=== PATIENT | female | born 1935 | race Caucasian/White ===

== ENCOUNTER 2019-12-18 10:35 | Inpatient (IN) | payer MEDICARE, OTHER ==
[~2019-12-18] VITALS: Ht 170.2 cm; Wt 73.6 kg
[~2019-12-18 10:35] MED LIST: ALPR1TAB2 PO; DICL100G15 TOP
--- NOTE | 2019-12-18 10:50 | NUR ---
Pt refusing to have EKG, speaking with daughter and trying to explain to pt need for tests
--- NOTE | 2019-12-18 11:03 | NUR ---
pt refusing ekg
--- NOTE | 2019-12-18 11:14 | NUR ---
paged level 2 stroke alert. onset unknown
[2019-12-18] MEDS ORDERED: aspirin 81mg tab.chew PO ONE (11:45)
[2019-12-18 11:56] LABS: HEMATOCRIT 44.9 % (35.0-45.0); HEMOGLOBIN 15.1 g/dl (12.0-16.0); MEAN CORPUSCULAR HGB CONC 33.6 g/dL (33.0-36.5)
[2019-12-18 11:58] LABS: BASOPHILS # (AUTO) 0.1 X10'3 (0-0.2); BASOPHILS % (AUTO) 1.1 % (0-1); EOSINOPHILS # (AUTO) 0.2 X10'3 (0-0.9); EOSINOPHILS % (AUTO) 3.9 % (0-6); LYMPHOCYTES # (AUTO) 2.2 X10'3 (1.1-4.8); LYMPHOCYTES % (AUTO) 35.5 % (21-51); MEAN CORPUSCULAR HEMOGLOBIN 31.8 PG (27.0-31.0); MEAN CORPUSCULAR VOLUME 94.5 FL (78-98); MEAN PLATELET VOLUME 8.5 FL (7.4-10.4); MONOCYTES # (AUTO) 0.6 X10'3 (0-0.9); MONOCYTES % (AUTO) 9.4 % (2-12); NEUTROPHILS # (AUTO) 3.2 X10'3 (1.8-7.7); NEUTROPHILS % (AUTO) 50.1 % (42-75); PLATELET COUNT 251 X10'3 (140-440); RED BLOOD COUNT 4.75 X10'6 (4.20-5.60); RED CELL DISTRIBUTION WIDTH 14.8 % (11.5-14.5); WHITE BLOOD COUNT 6.3 X10'3 (4.5-11.0)
[2019-12-18 12:05] LABS: ALANINE AMINOTRANSFERASE 19 U/L (12-78); ALBUMIN 4.2 G/DL (3.4-5.0); ALBUMIN/GLOBULIN RATIO 1.2 (1.1-1.5); ALKALINE PHOSPHATASE 75 IU/L (46-116); ANION GAP 7 (8-16); ASPARTATE AMINO TRANSFERASE 20 U/L (10-37); BILIRUBIN,TOTAL 0.6 MG/DL (0.1-1.0); BLOOD UREA NITROGEN 9 MG/DL (7-18); CALCIUM 8.9 MG/DL (8.5-10.1); CHLORIDE 102 MMOL/L (99-107); CREATININE 0.75 MG/DL (0.40-0.90); GLUCOSE 89 MG/DL (70-104); POTASSIUM 3.8 MMOL/L (3.5-5.1); SODIUM 136 MMOL/L (135-145); TOTAL PROTEIN 7.6 G/DL (6.4-8.2); eGFR 73 ML/MIN
[2019-12-18 12:08] LABS: TROPONIN I < 0.04 NG/ML (0.0-0.05)
--- NOTE | 2019-12-18 12:13 | NUR ---
TELE NEURO IN PROGRESS.
--- NOTE | 2019-12-18 12:27 | NUR ---
SURINDER WALKER SPEAKING TO SIGNIFICANT OTHER OUTSIDE PT ROOM.
[2019-12-18] MEDS ORDERED: iohexol 350MG/ML 100ml bottle IV ONE (12:58)
[2019-12-18] MEDS ORDERED: LORazepam 2 mg/ml vial IV ONE (13:20)
[2019-12-18] MEDS ORDERED: magnesium 2GM in 50ml NS 50 ML IV PRN (15:15)
[2019-12-18] MEDS ORDERED: potassium CL 10mEq/100ml bag 100 ML IV PRN ×2 (15:15)
[2019-12-18] MEDS ORDERED: magnesium Cl slow-release 64mg tablet PO PRN (15:15)
[2019-12-18] MEDS ORDERED: OMEP40CA13 PO (15:15)
[2019-12-18] MEDS ORDERED: potassium Cl 20 mEq SR tablet PO PRN ×2 (15:15)
[2019-12-18] MEDS ORDERED: ALPR1TAB7 PO (15:15)
[2019-12-18] MEDS ORDERED: magnesium 4gm in 100ml NS 100 ML IV PRN (15:15)
[2019-12-18] MEDS ORDERED: acetaminophen 325mg tablet PO PRN (15:15)
[2019-12-18] MEDS ORDERED: ondansetron/PF 4mg/2ml inj IV PRN (15:15)
[2019-12-18] MEDS ORDERED: MULT-384 PO (15:16)
[2019-12-18] MEDS ORDERED: CHOL10006 PO (15:16)
[2019-12-18 19:20] VITALS: BP 134/67
--- NOTE | 2019-12-18 19:20 | NUR ---
PT ARRIVED FROM ER. AMBULATED TO BED. PT HAS BEEN ORIENTED TO THE ROOM. VSS. RECEIVED REPORT FROM ARABELLA RAMOS PRIOR TO PT'S ARRIVAL.
--- NOTE | 2019-12-18 19:57 | NUR ---
6531 AMBIKA VICTOR 84 HERE FOR CONFUSION. SHE TAKES XANEX 1MG BID AND LIKE TO HAVE IT TONIGHT. ALSO C/O INDIGESTION. CAN SHE TAKE PRILOSEC 40MG WHICH IS HOME MED? SHE IS AXO NOW. THANK YOU. FROM [address] CARMEN
[2019-12-18] MEDS: K and/or MAG REPLACEMENT MC SCH (20:00)
[2019-12-18] MEDS ORDERED: ALPRAZolam 0.5mg tablet PO PRN (20:15)
[2019-12-18] MEDS ORDERED: pantoprazole 40mg Tablet.DR PO ONE (20:20)
[2019-12-18 22:00] VITALS: BP 111/54
[2019-12-19 02:00] VITALS: BP 130/72
[2019-12-19 06:00] VITALS: BP 115/83
--- NOTE | 2019-12-19 06:00 | NUR ---
Patient in room ORTHO 4008. I have received report from Leigh Ann BELL and had the opportunity to ask questions and assume patient care.
--- NOTE | 2019-12-19 06:11 | NUR ---
Patient in room ORTHO 4008. I have received report from ARABELLA ORTIZ and had the opportunity to ask questions and assume patient care.
[2019-12-19 06:57] LABS: BASOPHILS # (AUTO) 0.1 X10'3 (0-0.2); BASOPHILS % (AUTO) 1.1 % (0-1); EOSINOPHILS # (AUTO) 0.2 X10'3 (0-0.9); EOSINOPHILS % (AUTO) 4.2 % (0-6); HEMATOCRIT 41.3 % (35.0-45.0); HEMOGLOBIN 13.8 g/dl (12.0-16.0); LYMPHOCYTES # (AUTO) 1.4 X10'3 (1.1-4.8); LYMPHOCYTES % (AUTO) 29.3 % (21-51); MEAN CORPUSCULAR HEMOGLOBIN 31.5 PG (27.0-31.0); MEAN CORPUSCULAR HGB CONC 33.5 g/dL (33.0-36.5); MEAN CORPUSCULAR VOLUME 94.2 FL (78-98); MEAN PLATELET VOLUME 8.6 FL (7.4-10.4); MONOCYTES # (AUTO) 0.4 X10'3 (0-0.9); MONOCYTES % (AUTO) 9.5 % (2-12); NEUTROPHILS # (AUTO) 2.6 X10'3 (1.8-7.7); NEUTROPHILS % (AUTO) 55.9 % (42-75); PLATELET COUNT 224 X10'3 (140-440); RED BLOOD COUNT 4.38 X10'6 (4.20-5.60); RED CELL DISTRIBUTION WIDTH 14.3 % (11.5-14.5); WHITE BLOOD COUNT 4.7 X10'3 (4.5-11.0)
[2019-12-19 07:12] LABS: ALBUMIN 3.6 G/DL (3.4-5.0); ANION GAP 8 (8-16); BLOOD UREA NITROGEN 9 MG/DL (7-18); BUN/CREATININE RATIO 11.3 (6.6-38.0); CALCIUM 8.8 MG/DL (8.5-10.1); CHLORIDE 105 MMOL/L (99-107); CHOL/HDL RATIO 3.6 (0.00-4.99); CHOLESTEROL 198 MG/DL (0-200); GLUCOSE 116 MG/DL (70-104); HDL CHOLESTEROL 55 MG/DL (35-60); LDL CHOLESTEROL 123 MG/DL (50-100); MAGNESIUM 1.9 MG/DL (1.5-2.4); POTASSIUM 3.6 MMOL/L (3.5-5.1); SODIUM 139 MMOL/L (135-145); TOTAL CARBON DIOXIDE 25.9 MMOL/L (24-32); TRIGLYCERIDES 61 MG/DL (20-135); eGFR 68 ML/MIN
[2019-12-19] MEDS ORDERED: pantoprazole 40mg Tablet.DR PO SCH (08:00)
[2019-12-19] MEDS: K and/or MAG REPLACEMENT MC SCH (08:00)
--- NOTE | 2019-12-19 09:26 | NUR ---
PAGER ID: [phone] MESSAGE: [phone] Ivelisse Yeager Patient takes Xanacs BID at home. 1X only dose was ordered last night she is getting extrememly axious and would like a order for BID 1mg Xanac, Also states she feels good enough to go home. #[id number] Nelly
[2019-12-19] MEDS ORDERED: ALPRAZolam 0.25mg tablet PO PRN (09:40)
--- NOTE | 2019-12-19 12:14 | NUR ---
PATIENT NOT WANTING MRI OR TO WAIT FOR DOCTOR TO GET HER ANXIETY MEDICATION TO HELP HER CLAUSTROPHOBIA PT EVEN ATTEMPTED PULLING OUT IV BY HERSELF. SHE STATES THAT SHE IS GOING HOME Addendum: 12/19/19 at 1223 by Jona Parrish RN DR AGUEDA HAIR
[2019-12-19] MEDS ORDERED: ALPR1TAB7 PO (12:26)
--- NOTE | 2019-12-19 12:26 | NUR ---
PAGER ID: [phone] MESSAGE: [phone] Ivelisse Scruggs Patient refusing MRI is to anxious and has had previous issues with MRI not sure ativan would help she wants to go home. #[id number] Nelly
--- NOTE | 2019-12-20 10:12 | NUR ---
Case Management DC follow up: spoke to pt via telephone. s/p: confusion, possible TIA; refused MRI r/t claustrophobia. Reports:"doing really good, still a little weak, drinking my bottled water" Denies: acute/continuous CP, emergent SOB, resp distress, N/V, XIE, blurry vision, vertigo, syncope episodes, emergent general pain, abd tenderness/distension, bladder pain, dysuria, polyuria, hematuria, retention, constipation, diarrhea, fever, unexplained bleeding, bruising. Verbalizes understanding of s/s that warrant 9-11/ER visit for further evaluation. 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 taking as ordered, no ase r/t polypharmacy. pt contunues to take 1 baby asa daily. Acknowledges need to schedule/keep follow up appts w/ PCP/Mikhail to discuss medications, possible neurologist referral. pt states she does not understand why she needs it, but agrees to discuss w/PCP. Verbalizes compliance w/DC aftercare. Needs met, questions answered at DC, no further questions or concerns at this time.
== END 2019-12-19 12:45 | disposition home or self-care (01) | DRG 93 ==
LOC: ER 10:36 → ED HOLD 15:12 → ORTHO 4S 19:00
PROVIDERS: ADMIT Internal Medicine; ATTEND Internal Medicine
DX: G92 Toxic encephalopathy (principal); T42.4X5A Adverse effect of benzodiazepines, initial encounter; M81.0 Age-related osteoporosis without current pathological fracture; K21.9 Gastro-esophageal reflux disease without esophagitis; F01.50 Vascular dementia, unspecified severity, without behavioral disturbance, psychotic disturbance, mood disturbance, and anxiety; F41.9 Anxiety disorder, unspecified; I10 Essential (primary) hypertension
CPT/HCPCS: 36415; 70450; 70496; 70498; 71045; 80048; 80053; 80061; 82948; 83735; 84484; 85025; 87081; 93005; 93306; 97161; 97530; 99285; G0378; J2060; Q9967

== ENCOUNTER 2020-02-12 11:50 | Emergency (ER) | payer MEDICARE, OTHER ==
[~2020-02-12] VITALS: Ht 170.2 cm; Wt 71.4 kg
[~2020-02-12 11:50] MED LIST changes: -ALPR1TAB2 PO; +ALPR1TAB7 PO; +CHOL10006 PO; -DICL100G15 TOP; +MULT-384 PO; +OMEP40CA13 PO
[2020-02-12 12:18] LABS: BASOPHILS % (AUTO) 0.7 % (0-1); EOSINOPHILS # (AUTO) 0.3 X10'3 (0-0.9); EOSINOPHILS % (AUTO) 4.3 % (0-6); HEMATOCRIT 45.3 % (35.0-45.0); HEMOGLOBIN 15.1 g/dl (12.0-16.0); LYMPHOCYTES # (AUTO) 1.6 X10'3 (1.1-4.8); LYMPHOCYTES % (AUTO) 26.3 % (21-51); MEAN CORPUSCULAR HEMOGLOBIN 31.3 PG (27.0-31.0); MEAN CORPUSCULAR HGB CONC 33.3 g/dL (33.0-36.5); MEAN CORPUSCULAR VOLUME 94.1 FL (78-98); MEAN PLATELET VOLUME 8.5 FL (7.4-10.4); MONOCYTES # (AUTO) 0.7 X10'3 (0-0.9); MONOCYTES % (AUTO) 10.7 % (2-12); NEUTROPHILS # (AUTO) 3.6 X10'3 (1.8-7.7); PLATELET COUNT 235 X10'3 (140-440); RED BLOOD COUNT 4.81 X10'6 (4.20-5.60); RED CELL DISTRIBUTION WIDTH 15.2 % (11.5-14.5); WHITE BLOOD COUNT 6.2 X10'3 (4.5-11.0)
[2020-02-12 12:35] LABS: ALANINE AMINOTRANSFERASE 19 U/L (12-78); ALBUMIN 4.4 G/DL (3.4-5.0); ALBUMIN/GLOBULIN RATIO 1.4 (1.1-1.5); ALKALINE PHOSPHATASE 79 IU/L (46-116); ANION GAP 8 (8-16); ASPARTATE AMINO TRANSFERASE 18 U/L (10-37); BILIRUBIN,TOTAL 0.5 MG/DL (0.1-1.0); BLOOD UREA NITROGEN 11 MG/DL (7-18); BUN/CREATININE RATIO 15.1 (6.6-38.0); CALCIUM 8.5 MG/DL (8.5-10.1); CHLORIDE 100 MMOL/L (99-107); CREATININE 0.73 MG/DL (0.40-0.90); ETHANOL < 0.010 GM/DL (0.0-0.010); GLUCOSE 83 MG/DL (70-104); POTASSIUM 3.9 MMOL/L (3.5-5.1); SODIUM 134 MMOL/L (135-145); TOTAL CARBON DIOXIDE 25.6 MMOL/L (24-32); TOTAL PROTEIN 7.6 G/DL (6.4-8.2); eGFR 76 ML/MIN
--- NOTE | 2020-02-12 13:00 | NUR ---
TELENEURO IN PROGRESS AT THIS TIME.
[2020-02-12] MEDS ORDERED: ALPR1TAB7 PO (13:13)
[2020-02-12] MEDS ORDERED: ALPR0.5T8 PO (13:17)
[2020-02-12 13:18] LABS: URINE AMPHETAMINE SCREEN NEGATIVE (Neg); URINE BARBITUATE SCREEN NEGATIVE (Neg); URINE BENZODIAZEPINES SCREEN POSITIVE (Neg); URINE CANNABINOID SCREEN NEGATIVE (Neg); URINE COCAINE SCREEN NEGATIVE (Neg); URINE METHADONE SCREEN NEGATIVE (Neg); URINE OPIATE SCREEN NEGATIVE (Neg); URINE PHENCYCLIDINE SCREEN NEGATIVE (Neg)
[2020-02-12] MEDS ORDERED: magnesium hydroxide 30ml (MOM) UD suspension PO PRN (13:55)
[2020-02-12] MEDS ORDERED: ondansetron/PF 4mg/2ml inj IV PRN (13:55)
[2020-02-12] MEDS ORDERED: morphine 2 MG/ML inj. syringe IV PRN ×2 (13:55)
[2020-02-12] MEDS ORDERED: acetaminophen 325mg tablet PO PRN ×2 (13:55)
[2020-02-12] MEDS ORDERED: mag hydrox/Alum hydrox/simeth 30ml oral suspension PO PRN (13:55)
[2020-02-12 14:33] LABS: CHOLESTEROL 209 MG/DL (0-200); HDL CHOLESTEROL 70 MG/DL (35-60); LDL CHOLESTEROL 122 MG/DL (50-100); TRIGLYCERIDES 83 MG/DL (20-135)
--- NOTE | 2020-02-12 14:44 | NUR ---
PHARMASIST DOING MED REC
[2020-02-12 15:11] LABS: CLARITY,URINE CLEAR (Clear); COLOR,URINE STRAW (Yellow); GLUCOSE, URINE NEGATIVE (Neg); KETONES,URINE TRACE mg/dl (Neg); LEUKOCYTE ESTERASE ,URINE NEGATIVE (Neg); NITRITES, URINE NEGATIVE (Neg); OCCULT BLOOD,URINE SMALL (Neg); PH,URINE 5.5 (4.8-8.0); PROTEIN,URINE NEGATIVE (Neg); UROBILINOGEN,URINE 0.2 E.U/dL (0.2-1.0)
[2020-02-12 15:12] LABS: UA COLLECTION TYPE CLN CATCH MIDSTREAM
[2020-02-12 15:19] LABS: MUCUS STRANDS FEW /LPF (Neg); SQUAMOUS EPITHELIAL CELL,UR FEW /LPF (FEW)
[2020-02-12 15:20] LABS: BACTERIA,URINE NONE SEEN /HPF (Neg); RBC,URINE 0-2 /HPF (0-2); WBC,URINE NONE SEEN /HPF (0-4)
[2020-02-12 15:22] VITALS: BP 145/123
[2020-02-13] MEDS ORDERED: aspirin 81mg tablet.DR PO SCH (08:00)
== END 2020-02-12 15:24 | disposition home or self-care (01) ==
LOC: ER 11:51 → UNDOADMIN 13:54 → ED HOLD 13:54
DX: R41.82 Altered mental status, unspecified (principal); G45.8 Other transient cerebral ischemic attacks and related syndromes; I10 Essential (primary) hypertension; R51 Headache; K21.9 Gastro-esophageal reflux disease without esophagitis; Z98.890 Other specified postprocedural states; Z72.89 Other problems related to lifestyle; Z60.2 Problems related to living alone; Z79.899 Other long term (current) drug therapy
CPT/HCPCS: 36415; 70450; 71045; 80053; 80061; 80305; 80320; 81001; 83880; 84484; 85025; 85651; 86885; 86900; 86901; 93005; 99285

== ENCOUNTER 2021-11-28 09:17 | Emergency (ER) | payer MEDICARE, OTHER ==
[~2021-11-28 09:17] MED LIST changes: +ALPR0.5T8 PO; -ALPR1TAB7 PO; -OMEP40CA13 PO; +OMEP40CA21 PO
== END 2021-11-28 09:41 | disposition left against medical advice (07) ==
LOC: ER 09:21
DX: R53.1 Weakness (principal); Z53.21 Procedure and treatment not carried out due to patient leaving prior to being seen by health care provider
CPT/HCPCS: 93005

== ENCOUNTER 2022-03-21 11:14 | Emergency (ER) | payer MEDICARE, OTHER ==
[~2022-03-21] VITALS: Ht 170.2 cm; Wt 73.0 kg
[2022-03-21 12:04] LABS: BASOPHILS # (AUTO) 0.1 X10'3 (0-0.2); BASOPHILS % (AUTO) 1.3 % (0-1); EOSINOPHILS # (AUTO) 0.3 X10'3 (0-0.9); HEMATOCRIT 46.3 % (35.0-45.0); LYMPHOCYTES # (AUTO) 2.4 X10'3 (1.1-4.8); LYMPHOCYTES % (AUTO) 37.7 % (21-51); MEAN CORPUSCULAR HEMOGLOBIN 32.2 PG (27.0-31.0); MEAN CORPUSCULAR HGB CONC 34.5 g/dL (33.0-36.5); MEAN CORPUSCULAR VOLUME 93.4 FL (78-98); MEAN PLATELET VOLUME 8.4 FL (7.4-10.4); MONOCYTES # (AUTO) 0.7 X10'3 (0-0.9); MONOCYTES % (AUTO) 10.4 % (2-12); NEUTROPHILS # (AUTO) 2.9 X10'3 (1.8-7.7); NEUTROPHILS % (AUTO) 45.6 % (42-75); PLATELET COUNT 244 X10'3 (140-440); RED BLOOD COUNT 4.95 X10'6 (4.20-5.60); RED CELL DISTRIBUTION WIDTH 14.8 % (11.5-14.5); WHITE BLOOD COUNT 6.4 X10'3 (4.5-11.0)
[2022-03-21 12:28] LABS: ALANINE AMINOTRANSFERASE 25 U/L (12-78); ALBUMIN/GLOBULIN RATIO 1.2 (1.1-1.5); ALKALINE PHOSPHATASE 63 IU/L (46-116); ANION GAP 11 (8-16); ASPARTATE AMINO TRANSFERASE 24 U/L (10-37); BILIRUBIN,TOTAL 0.6 MG/DL (0.1-1.0); BLOOD UREA NITROGEN 11 MG/DL (7-18); BUN/CREATININE RATIO 16.2 (6.6-38.0); CALCIUM 9.5 MG/DL (8.5-10.1); CHLORIDE 106 MMOL/L (99-107); CREATININE 0.68 MG/DL (0.40-0.90); GLUCOSE 89 MG/DL (70-104); POTASSIUM 3.5 MMOL/L (3.5-5.1); SODIUM 138 MMOL/L (135-145); TOTAL CARBON DIOXIDE 20.6 MMOL/L (24-32); TOTAL PROTEIN 7.4 G/DL (6.4-8.2); eGFR 82 ML/MIN
[2022-03-21 14:05] LABS: CLARITY,URINE CLEAR (Clear); COLOR,URINE YELLOW (Yellow); GLUCOSE, URINE NEGATIVE (Neg); KETONES,URINE TRACE mg/dl (Neg); LEUKOCYTE ESTERASE ,URINE NEGATIVE (Neg); NITRITES, URINE NEGATIVE (Neg); OCCULT BLOOD,URINE NEGATIVE (Neg); PH,URINE 7.5 (4.8-8.0); PROTEIN,URINE NEGATIVE (Neg)
[2022-03-21 14:06] LABS: UA COLLECTION TYPE STRAIGHT CATH
[2022-03-21 14:38] VITALS: BP 113/76
== END 2022-03-21 14:41 | disposition home or self-care (01) ==
LOC: ER 11:15
DX: R53.1 Weakness (principal); R42 Dizziness and giddiness; R51.9 Headache, unspecified; F41.9 Anxiety disorder, unspecified; K21.9 Gastro-esophageal reflux disease without esophagitis; Z98.890 Other specified postprocedural states; Z72.89 Other problems related to lifestyle; Z60.2 Problems related to living alone; Z79.899 Other long term (current) drug therapy
CPT/HCPCS: 36415; 70450; 71045; 80053; 81003; 82948; 83880; 84484; 85025; 93005; 99285

== ENCOUNTER 2022-07-25 04:14 | Emergency (ER) | payer MEDICARE, OTHER ==
[~2022-07-25] VITALS: Ht 170.2 cm; Wt 71.2 kg
[2022-07-25 04:18] VITALS: BP 145/86
== END 2022-07-25 05:42 | disposition left against medical advice (07) ==
LOC: ER 04:14
DX: M79.606 Pain in leg, unspecified (principal); Z53.21 Procedure and treatment not carried out due to patient leaving prior to being seen by health care provider
CPT/HCPCS: 99281